=== PATIENT | male | born 1995 | race Caucasian/White ===

== ENCOUNTER 2017-02-17 04:23 | Emergency (ER) | payer SELFPAY ==
[~2017-02-17] VITALS: Ht 193 cm; Wt 92.5 kg
[~2017-02-17 04:23] MED LIST: CODACE30 PO; CYCL10 PO; HYDACE5 PO; IBUP600 PO; Norco 5-325 Ta1 EACH PO; OLAN7.5 PO; OXYACE5T PO; TOPI100 PO; TRAZ100 PO; Vibramycin100 MG PO
== END 2017-02-17 05:40 | disposition home or self-care (01) ==
LOC: ER 04:23
DX: S49.91XA Unspecified injury of right shoulder and upper arm, initial encounter (principal); F17.200 Nicotine dependence, unspecified, uncomplicated; X58.XXXA Exposure to other specified factors, initial encounter
CPT/HCPCS: 73030; 99283

== ENCOUNTER 2017-05-19 18:21 | Emergency (ER) | payer OTHER ==
[~2017-05-19] VITALS: Ht 195.6 cm; Wt 88.9 kg
[2017-05-19] MEDS ORDERED: IBUP600 PO (19:18)
== END 2017-05-19 19:38 | disposition home or self-care (01) ==
LOC: ER 18:21
DX: S83.92XA Sprain of unspecified site of left knee, initial encounter (principal); F31.9 Bipolar disorder, unspecified; F32.9 Major depressive disorder, single episode, unspecified; F43.10 Post-traumatic stress disorder, unspecified; F41.9 Anxiety disorder, unspecified; F17.210 Nicotine dependence, cigarettes, uncomplicated; W23.0XXA Caught, crushed, jammed, or pinched between moving objects, initial encounter; Y99.0 Civilian activity done for income or pay
CPT/HCPCS: 29505; 73564; 99283

== ENCOUNTER 2020-07-01 20:42 | Emergency (ER) | payer OTHER ==
[~2020-07-01] VITALS: Ht 195.6 cm; Wt 111.1 kg
== END 2020-07-01 23:25 | disposition home or self-care (01) ==
LOC: ER 20:42
DX: M24.411 Recurrent dislocation, right shoulder (principal)
CPT/HCPCS: 73030; 99283-25

== ENCOUNTER 2022-06-04 01:47 | Emergency (ER) | payer OTHER ==
[~2022-06-04] VITALS: Ht 195.6 cm; Wt 117.9 kg
[2022-06-04 02:25] VITALS: BP 126/82
== END 2022-06-04 03:38 | disposition home or self-care (01) ==
LOC: ER 01:47
DX: S01.81XA Laceration without foreign body of other part of head, initial encounter (principal); K03.81 Cracked tooth; F17.210 Nicotine dependence, cigarettes, uncomplicated; Z23 Encounter for immunization; Y99.0 Civilian activity done for income or pay; W22.8XXA Striking against or struck by other objects, initial encounter
CPT/HCPCS: 12011; 90471; 90714; 99283-25

== ENCOUNTER 2024-12-26 19:14 | Emergency (ER) | payer OTHER ==
[~2024-12-26] VITALS: Ht 195.6 cm; Wt 88.5 kg
[2024-12-26 19:19] VITALS: BP 137/88
== END 2024-12-26 19:35 | disposition home or self-care (01) ==
LOC: ER 19:14
DX: S01.01XA Laceration without foreign body of scalp, initial encounter (principal); W22.8XXA Striking against or struck by other objects, initial encounter; F17.210 Nicotine dependence, cigarettes, uncomplicated
CPT/HCPCS: 12002; 99282-25